=== PATIENT | female | born 1975 | race Caucasian/White ===

== ENCOUNTER → 2018-07-06 | Outpatient (CLI) | payer OTHER ==
[~2018-07-06] MED LIST: IBUP800T37 PO; LEVO75TA68 PO; OXYC-865 PO
--- NOTE | 2018-07-06 11:50 | RADIOLOGY IMAGING REPORT ---
FACILITY: [facility] PATIENT NAME: MARIA C SAUNDERS : [id number] MR: [id number] V: [id number] EXAM DATE: [id number] ORDERING PHYSICIAN: TOÑO CEBALLOS TECHNOLOGIST: Mary Estevez PROCEDURE: BILATERAL DIGITAL SCREENING MAMMOGRAM WITH CAD ASSISTED INTERPRETATION & 3D TOMOSYNTHESIS REASON FOR STUDY: Screening. FAMILY HISTORY OF BREAST CANCER: None. BREAST PROCEDURES/TREATMENTS: Benign surgical biopsy of the Left breast. COMPARISON: Prior mammograms 06/17/15, 06/09/15. VIEWS OBTAINED: 2D & 3D full field CC & MLO. BREAST DENSITY: The breasts are heterogeneously dense which can obscure small masses. MAMMOGRAM FINDINGS: There is a rounded mass like area just lateral to midline on the Right CC view in the middle depth which is best appreciated on Tomographic slice 60 for which Spot compression view is recommended. An additional rounded mass like area in the far lateral portion of the Right breast in the middle depth was present on the prior study this appears to be just above midline in the middle depth on the Right MLO view best appreciated on Tomographic slice 15. IMPRESSION: BIRADS 0: Incomplete. Additional views of the Right breast and potential Right breast Ultrasound depending upon the additional imaging findings. DIAGNOSTIC CATEGORY 0--INCOMPLETE: NEED ADDITIONAL IMAGING EVALUATION. RECOMMENDATIONS: ADDITIONAL MAMMOGRAPHIC VIEWS REQUIRED: RIGHT BREAST. ULTRASOUND: RIGHT BREAST. Dictated by: Hiral Gil M.D. on 07/06/2018 at 9:12 Transcribed by: AZAM on 07/06/2018 at 9:50 Approved by: Hiral Gil M.D. on 07/06/2018 at 11:48 [facility]
== END ==
LOC: MAMO 00:53
PROVIDERS: ATTEND Nurse Practitioner Psychiatric/Mental Health
DX: Z12.31 Encounter for screening mammogram for malignant neoplasm of breast (principal)
CPT/HCPCS: 77063; 77067

== ENCOUNTER → 2018-07-26 | Outpatient (CLI) | payer OTHER ==
--- NOTE | 2018-07-27 10:49 | RADIOLOGY IMAGING REPORT ---
FACILITY: [facility] PATIENT NAME: MARIA C SAUNDERS : [id number] MR: [id number] V: [id number] EXAM DATE: [id number] ORDERING PHYSICIAN: ARPAN COBIAN TECHNOLOGIST: Mary Estevez PROCEDURE:RIGHT DIGITAL MAMMOGRAM DIAGNOSTIC WITH CAD ASSISTED INTERPRETATION & 3D TOMOSYNTHESIS REASON FOR STUDY: Further evaluation FAMILY HISTORY OF BREAST CANCER: None BREAST PROCEDURES/TREATMENTS: Benign surgical biopsy of the Left breast COMPARISON STUDIES: 07/06/18, 06/17/15, 06/09/15 MAMMOGRAM VIEWS OBTAINED: Bilateral 2D & 3D spot compression views in the Right CC & MLO projections BREAST DENSITY: The breasts are heterogeneously dense which can obscure small masses. MAMMOGRAM FINDINGS: The rounded area of increased density just lateral to midline in the middle depth on the Right CC view appears to be just above midline on the Right MLO view. This is redemonstrated on the additional images. Right breast Ultrasound was performed. ULTRASOUND AREA SCANNED: 10-12 o'clock position of the Right breast ULTRASOUND FINDINGS: In the 11 o'clock position of the Right breast 8cm from the nipple there is a 1.8cm cyst which corresponds to the larger nodular density in the upper outer quadrant of the Right breast seen on prior mammograms. In the 10 o'clock position of the Right breast 6cm from the nipple there is a small intramammary lymph node measuring 1cm in maximum dimension. In the 12 o'clock position of the Right breast 6cm from the nipple there is a 1.3cm cyst. This corresponds to the nodular density seen on today's mammogram. DIAGNOSTIC CATEGORY 2--BENIGN FINDING. RECOMMENDATIONS: ROUTINE MAMMOGRAM AND CLINICAL EVALUATION. IMPRESSION: BIRADS 2: Benign finding. Dictated by: Hiral Gil M.D. on 07/26/2018 at 16:20 Transcribed by: [email or web address] on 07/27/2018 at 8:46 Approved by: Hiral Gil M.D. on 07/27/2018 at 10:48 [facility]
--- NOTE | 2018-07-27 10:50 | RADIOLOGY IMAGING REPORT ---
FACILITY: [facility] PATIENT NAME: MARIA C SAUNDERS : [id number] MR: [id number] V: [id number] EXAM DATE: [id number] ORDERING PHYSICIAN: ARPAN COBIAN TECHNOLOGIST: Judy Carrasquillo RT(R)(CT) REASON FOR STUDY: Further evaluation FAMILY HISTORY OF BREAST CANCER: None BREAST PROCEDURES/TREATMENTS: Benign surgical biopsy of the Left breast COMPARISON STUDIES: 07/06/18, 06/17/15, 06/09/15 MAMMOGRAM VIEWS OBTAINED: Bilateral 2D & 3D spot compression views in the Right CC & MLO projections BREAST DENSITY: The breasts are heterogeneously dense which can obscure small masses. MAMMOGRAM FINDINGS: The rounded area of increased density just lateral to midline in the middle depth on the Right CC view appears to be just above midline on the Right MLO view. This is redemonstrated on the additional images. Right breast Ultrasound was performed. ULTRASOUND AREA SCANNED: 10-12 o'clock position of the Right breast ULTRASOUND FINDINGS: In the 11 o'clock position of the Right breast 8cm from the nipple there is a 1.8cm cyst which corresponds to the larger nodular density in the upper outer quadrant of the Right breast seen on prior mammograms. In the 10 o'clock position of the Right breast 6cm from the nipple there is a small intramammary lymph node measuring 1cm in maximum dimension. In the 12 o'clock position of the Right breast 6cm from the nipple there is a 1.3cm cyst. This corresponds to the nodular density seen on today's mammogram. DIAGNOSTIC CATEGORY 2--BENIGN FINDING. RECOMMENDATIONS: ROUTINE MAMMOGRAM AND CLINICAL EVALUATION. IMPRESSION: BIRADS 2: Benign finding. Dictated by: Hirla Gil M.D. on 07/26/2018 at 16:20 [facility] Approved by: Hiral Gil M.D. on 07/27/2018 at 10:48
== END ==
LOC: MAMO 01:18
PROVIDERS: ATTEND Obstetrics & Gynecology
DX: R92.2 Inconclusive mammogram (principal)
CPT/HCPCS: 77061; 77065